=== PATIENT | female | born 2000 | race Asian ===

== ENCOUNTER 2018-07-02 12:45 | Inpatient (IN) | payer OTHER ==
[2018-07-02] MEDS ORDERED: Nicotine Inhaler* 10 MG AMP INH PRN (13:06)
[2018-07-02 13:42] LABS: Urine Appearance Clear; Urine Blood Negative (Negative); Urine Color Yellow; Urine Ketones Negative (Negative); Urine Protein Negative (Negative); Urine Specific Gravity 1.027 (1.010-1.030); Urine Urobilinogen Negative (Negative)
[2018-07-02] MEDS ORDERED: Mouth Piece, Nicotine* 1 EACH CARTRIDGE INH ONE (14:00)
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
[2018-07-02 14:54] LABS: ABS Basophils 0.1 10^3/ul (0-0.2); ABS Eosinophils 0.2 10^3/ul (0-0.6); ABS Monocytes 0.6 10^3/ul (0-0.8); ABS Neutrophils 5.1 10^3/ul (1.5-7.7); ABS Nucleated RBC 0 10^3/ul; Eosinophil % 2.8 %; Hematocrit 42 % (35-47); Hemoglobin 14.3 g/dl (12.0-16.0); Lymphocyte % 25.2 %; Mean Corpuscular HGB Conc 34 g/dl (31-36); Mean Corpuscular Hemoglobin 31 pg (27-31); Mean Corpuscular Volume 92 fL (80-97); Nucleated Red Blood Cells % 0.1; Platelet Count 324 10^3/ul (150-450); Red Blood Count 4.58 10^6/ul (4.00-5.40); Red Cell Distribution Width 13 % (10.5-15)
[2018-07-02 15:35] LABS: EGFR Non-African American 119.5 (>60)
--- NOTE | 2018-07-02 19:54 | ED ---
Progress - Progress Note Progress Note: patient signed out by brenda pending MHE after MHE patient will be admitted voluntary - Consult/PCP Time Called: 14:00 Course/Dx - Course Course Of Treatment: Is evaluated for suicidal thoughts. She denies any known plan. She does state she wants to harm her ex-boyfriend. She endorses self- harm with cutting to her bilateral forearms, however on physical examination, there is no cutting or french noted. She is cleared for MHU evaluation. She is discharged to [facility] PA-[facility] at 5:30p pending MHU evaluation. after mental health exam patient will be admitted voluntary for depression. - Diagnoses Provider Diagnoses: Suicidal thoughts, Depression Discharge - Sign-Out/Discharge Documenting (check all that apply): Receiving Sign-Out Receiving patient FROM: Brenda Galvez - Discharge Plan Condition: Stable Disposition: ADMITTED TO [facility] Referrals: [facility] - Jesús CALLE [Primary Care Provider] - - Billing Disposition and Condition Condition: STABLE Disposition: Admitted to [facility]
[2018-07-02] MEDS ORDERED: Al Hydrox/Mg Hydrox/Simet LIQ* 30 ML UDC PO PRN (21:32)
[2018-07-02] MEDS ORDERED: Acetaminophen TAB* 325 MG PO PRN (21:33)
[2018-07-02] MEDS ORDERED: Mouth Piece, Nicotine* 1 EACH CARTRIDGE INH PRN (21:33)
[2018-07-03] MEDS: Multivitamins/Minerals TAB PO SCH (12:55)
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
[2018-07-04] MEDS: Multivitamins/Minerals TAB PO SCH (09:31)
[2018-07-04] MEDS: Sertraline* 50 MG TAB PO SCH (09:31)
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
[2018-07-05 09:07] VITALS: BP 112/54
[2018-07-05] MEDS: Sertraline* 50 MG TAB PO SCH (09:08)
[2018-07-05] MEDS: Multivitamins/Minerals TAB PO SCH (09:08)
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
== END 2018-07-05 13:13 | disposition home or self-care (01) | DRG 882 ==
LOC: ED 12:45 → BSU 20:00
PROVIDERS: ADMIT Psychiatry & Neurology Psychiatry; ATTEND Psychiatry & Neurology Psychiatry
DX: F43.12 Post-traumatic stress disorder, chronic (principal); R45.851 Suicidal ideations; F32.9 Major depressive disorder, single episode, unspecified; Z90.89 Acquired absence of other organs; Z72.89 Other problems related to lifestyle
CPT/HCPCS: 36415; 80053; 80061; 80307; 80320; 80329; 81003; 83036; 84443; 85025; 99222; 99231; 99238; 99284; A9270-GY; G0480